=== PATIENT | male | born 1995 | race Caucasian/White ===

== ENCOUNTER 2023-01-18 15:57 | Emergency (ER) | payer OTHER, SELFPAY ==
--- NOTE | ~2023-01-18 | XR_ITS ---
EXAMINATION: XR shoulder LT min 2V INDICATION: Left shoulder pain TECHNIQUE: Four views of the left shoulder are submitted. COMPARISON: None FINDINGS: Normal alignment. No fracture. Glenohumeral and acromioclavicular joint spaces are normal. Soft tissues are unremarkable. IMPRESSION: 1. No acute osseous abnormality. Reviewed, dictated and finalized at location F.
[2023-01-18 15:59] VITALS: BP 146/73; PULSE 79; RESP 18; TEMP 36.3; O2SAT 100
--- NOTE | 2023-01-18 17:01 | ED.UPPEXIN ---
HPI - Extremity Injury (Upper) General Chief Complaint: Extremity Injury, Upper Stated Complaint: L shoulder injury Time Seen by Provider: 01/18/23 16:05 History of Present Illness HPI narrative: 28-year-old male history of type 1 diabetes presents to the emergency room for evaluation of left shoulder pain. States the pain began gradually several days ago, and is worse with certain movements. Patient states he works as a [employer] is frequently lifting heavy objects. Denies any known injury or trauma to the shoulder. Patient states the anterior side of his shoulder is numb on the surface of the skin. Related Data Home Medications Medication Instructions Recorded Confirmed citalopram 20 mg tablet mg 01/18/23 01/18/23 insulin glargine-yfgn 100 unit/mL unit subcut 01/18/23 (3 mL) subcutaneous pen (Semglee (insulin glargine-yfgn) Pen) Allergies Allergy/AdvReac Type Severity Reaction Status Date / Time No Known Drug Allergies Allergy Verified 06/14/13 10:55 Review of Systems Review of Systems: CONSTITUTIONAL: Denies fever, chills, or sweats. EYES: Denies visual changes, redness, or discharge. ENT: Denies rhinorrhea, congestion, sore throat, or otalgia. CARDIOVASCULAR: Denies chest pain, palpitations, or edema. RESPIRATORY: Denies cough or dyspnea. GASTROINTESTINAL: Denies abdominal pain, nausea, vomiting, or diarrhea. GENITOURINARY: Denies dysuria or hematuria. SKIN: Denies rash or itching. MUSCULOSKELETAL: Per HPI, reports left shoulder pain NEUROLOGIC: Denies headache, numbness, dizziness, or weakness. PSYCHIATRIC: Denies anxiety or depression. Exam Narrative: GENERAL: Well-appearing, well-nourished, no physical limitations, and in no acute distress. HEAD: Normocephalic, atraumatic. EYES: Conjunctivae normal, PERRLA and EOMI. CHEST: Clear to auscultation. No respiratory distress. No wheezes rales or rhonchi. HEART: Regular rate and rhythm. No murmur heard. Normal peripheral pulses. EXTREMITIES: Left shoulder: +TTP to glenohumeral joint. No bony abnormality. No ecchymosis, soft tissue swelling noted. Limited range of motion with abduction and abduction. Positive Diaz Mau test. Negative drop arm test SKIN: Warm, dry, no rash. No noted wounds NEURO: No focal deficits. Alert and oriented x3. MAEW. CN's II-XI intact bilaterally, normal gait PSYCH: Cooperative. Normal mood and affect. Course Vital Signs Vital signs: Vital Signs Temperature 36.3 C L 01/18/23 15:59 Pulse Rate 79 01/18/23 15:59 Respiratory Rate 18 01/18/23 15:59 Blood Pressure 146/73 H 01/18/23 15:59 Pulse Oximetry 100 01/18/23 15:59 Oxygen Delivery Room Air 01/18/23 15:59 Temperature 36.3 C L 01/18/23 15:59 Pulse Rate 79 01/18/23 15:59 Respiratory Rate 18 01/18/23 15:59 Blood Pressure 146/73 H 01/18/23 15:59 Pulse Oximetry 100 01/18/23 15:59 Oxygen Delivery Room Air 01/18/23 15:59 Discharge Plan Discharge Clinical Impression: Acute pain of left shoulder Patient Disposition: Home, Self-Care Condition: Stable Instructions: Antibiotic Form, Shoulder Pain (ED) Prescriptions: New methocarbamol 750 mg tablet 750 mg PO TID Qty: 21 0RF prednisone 20 mg tablet 40 mg PO DAILY 5 Days Qty: 10 0RF No Action citalopram 20 mg tablet insulin glargine-yfgn [Semglee(insulin glarg-yfgn)Pen] 100 unit/mL (3 mL) insulin pen SUBCUT Follow-up/Referrals: Bull Crawley MD [Physician] - J Carlos Waldron MD [Primary Care Provider] - Time of Disposition: 17:00
== END 2023-01-18 17:15 | disposition home or self-care (01) ==
PROVIDERS: Emergency Provider Nurse Practitioner Family; PCP Emergency Medicine
DX: M25.512 Pain in left shoulder (principal); E10.9 Type 1 diabetes mellitus without complications; Z79.4 Long term (current) use of insulin
CPT/HCPCS: 73030; 96372; 99283; J1100